=== PATIENT | female | born 1970 | race African-American/Black ===

== ENCOUNTER 2019-04-18 18:14 | Inpatient (IN) | payer OTHER, SELFPAY ==
[2019-04-18 18:34] LABS: #Eosinphils 0.1 thou/uL (0.0-0.7); #Lymphocytes 2.1 thou/uL (1.20-3.40); #Monocytes 0.5 thou/uL (0.11-0.59); #Neutrophils 5.2 thou/uL (1.40-6.50); %Basophils 0.3 % (0.0-1.0); %Eosinophils 0.9 % (0.0-10.0); %Lymphocytes 26.8 % (21.0-51.0); %Monocytes 5.9 % (0.0-10.0); %Neutrophils 66.1 % (42.0-75.0); Hemoglobin 4.7 g/dL (12.0-16.0); Mean Corpuscular HGB CONC 27.3 g/dL (32.0-36.0); Mean Corpuscular Hemoglobin 16.7 pg (27.0-31.0); Mean Corpuscular Volume 61.3 fL (78.0-98.0); Mean Platelet Volume 9.8 fL (7.4-10.4); Platelet Count 502 thou/uL (130-400); RBC Distribution Width 19.3 % (11.5-14.5); Red Blood Cell (RBC) Count 2.82 mill/uL (4.20-5.40); White Blood Cell (WBC) Count 7.8 thou/uL (4.8-10.8)
[2019-04-18 18:58] LABS: ALT (SGPT) 9 U/L (8-55); AST (SGOT) 11 U/L (5-34); Albumin 3.6 g/dL (3.5-5.0); Alkaline Phosphatase 58 U/L (40-110); Anion Gap 10 mmol/L (10-20); BUN (Urea Nitrogen) 13 mg/dL (7.0-18.7); Bilirubin, Total 0.3 mg/dL (0.2-1.2); Calc. Creatinine Clearance 0 mL/min (70-130); Calcium 8.8 mg/dL (7.8-10.44); Carbon Dioxide 26 mmol/L (22-29); Chloride 109 mmol/L (98-107); Estimated GFR-MDRD Greater than 90; Globulin 2.7 g/dL (2.4-3.5); Glucose 103 mg/dL (70-105); Potassium 3.3 mmol/L (3.5-5.1); Protein, Total 6.3 g/dL (6.0-8.3); Sodium 142 mmol/L (136-145)
[2019-04-18] MEDS ORDERED: Pantoprazole 40 MG VIAL ONE (19:15)
[2019-04-18] MEDS ORDERED: Senokot S 8.6-50 MG TAB PO PRN (19:43)
[2019-04-18] MEDS ORDERED: Ondansetron PF 4 MG/2 ML Vial IVP PRN (19:43)
[2019-04-18] MEDS ORDERED: Acetaminophen 325 MG TAB PO PRN (19:43)
[2019-04-18 20:02] LABS: Reticulocyte Count 2.8 % (0.5-1.5)
[2019-04-18 20:21] LABS: Magnesium 1.8 mg/dL (1.6-2.6)
[2019-04-18 21:30] VITALS: BMI 30.7
[2019-04-19] MEDS ORDERED: NIFEdipine XL 30 MG TAB PO SCH (01:30)
--- NOTE | 2019-04-19 03:47 | PDOC.HHP ---
Hospitalist HPI - History of Present Illness Blood in stool; Anemia; Leg swelling History of Present Illness: 48 yo AAF with HTN presents to ER due to abnormal blood work and was sent by PCP. Patient states that she has been experiencing blood in her stool over the past month. This was initially 1-2/wk. However, over the past week, this has gotten upto 4 times/day. She reports leila blood and blood mixed with stools. No pain with BMs. Denies melena, blood vomitus, blood in urine, bleeding gums or epistaxis. She has also noticed shortness of breath with minimal activity, palpitations and lightheadedness with activity. She has experienced leg swelling over the past week and presented to her PCP office. She underwent blood work and was found to have profound anemia. So, she was sent to the ER. She denies N/V/abdominal pain. No fever, chills. No cough, wheezing, CP. No burning or pain with urination. No headache or vision changes. No rash or bruising. She has remote history of hematochezia over 15 yrs ago and had colonoscopy x 2 then and was found to have polyps. She hasn't had any repeat colonoscopies due to lack of insurance. ED Course: Placed on protonix and admitted to hospital. PRBCs ordered for transfusion. Hospitalist ROS - Review of Systems All other systems reviewed; all pertinent +/- noted in HPI/Subj - Medication Medications: Active Medications Generic Name Dose Route Start Last Admin Trade Name Freq PRN Reason Stop Dose Admin Acetaminophen 650 mg 04/18/19 19:43 04/19/19 01:27 Tylenol PO 650 mg Q4H PRN Administration Headache/Fever/Mild Pain (1-3) Pantoprazole Sodium 80 mg/ 100 mls @ 10 mls/hr 04/18/19 19:30 04/18/19 21:38 Miscellaneous Medication 1 IVPB 04/19/19 05:29 100 mls each/ Sodium Chloride INF DAT Administration Hospitalist History - Past Medical History Source: patient Cardiac: reports: HTN Pulmonary: reports: asthma - Past Surgical History Past Surgical History: reports: Tonsillectomy, Other (Colonoscopy) - Family History Family History: reports: diabetes mellitus (both grandmothers) - Social History Smoking Status: Current every day smoker (1 PPD) Tobacco Type: cigarettes Alcohol: reports: Occassional Drugs: reports: marijuana Living Situation: With Family Activity level: independent ambulation - Exam General Appearance: NAD, awake alert Eye: PERRL, anicteric sclera Eye - other findings: Conjunctival pallor present ENT: normocephalic atraumatic, no oropharyngeal lesions, dry oral mucosa Neck: supple, symmetric, no thyromegaly, no lymphadenopathy Heart: RRR, no murmur, no gallops, no rubs, normal peripheral pulses Respiratory: CTAB, no wheezes, no rales, no ronchi, normal chest expansion, no tachypnea, normal percussion Respiratory - other findings: Not using accessory muscles Gastrointestinal: soft, non-tender, non-distended, normal bowel sounds, no palpable masses, no hepatomegaly, no splenomegaly Extremities: no cyanosis, no clubbing, 1+ LE edema (bilaterally) Skin: normal turgor, no lesions, no rashes Neurological: cranial nerve grossly intact, normal sensation to touch, no weakness Musculoskeletal: normal tone, normal strength, no muscle wasting Psychiatric: normal affect, normal behavior, A&O x 3 Hospitalist Results - Labs Result Diagrams: 04/18/19 18:23 04/18/19 18:23 Lab results: WBC 7.8 thou/uL (4.8-10.8) 04/18/19 18:23 Hgb 4.7 g/dL (12.0-16.0) L* 04/18/19 18:23 Hct 17.3 % (36.0-47.0) L 04/18/19 18:23 MCV 61.3 fL (78.0-98.0) L 04/18/19 18:23 Plt Count 502 thou/uL (130-400) H 04/18/19 18:23 Neutrophils % 66.1 % (42.0-75.0) 04/18/19 18:23 Sodium 142 mmol/L (136-145) 04/18/19 18:23 Potassium 3.3 mmol/L (3.5-5.1) L 04/18/19 18:23 Chloride 109 mmol/L (98-107) H 04/18/19 18:23 Carbon Dioxide 26 mmol/L (22-29) 04/18/19 18:23 BUN 13 mg/dL (7.0-18.7) 04/18/19 18:23 Creatinine 0.74 mg/dL (0.6-1.1) 04/18/19 18:23 Glucose 103 mg/dL (70-105) 04/18/19 18:23 Calcium 8.8 mg/dL (7.8-10.44) 04/18/19 18:23 Total Bilirubin 0.3 mg/dL (0.2-1.2) 04/18/19 18:23 AST 11 U/L (5-34) 04/18/19 18:23 ALT 9 U/L (8-55) 04/18/19 18:23 Alkaline Phosphatase 58 U/L (40-110) 04/18/19 18:23 Serum Total Protein 6.3 g/dL (6.0-8.3) 04/18/19 18:23 Albumin 3.6 g/dL (3.5-5.0) 04/18/19 18:23 - EKG Interpretation EKG: Personally reviewed - Sinus rhythm; No ST-T changes suggestive of ischemia Hospitalist H&P A/P - Problem (1) Anemia Code(s): D64.9 - ANEMIA, UNSPECIFIED Status: Acute Qualifiers: Anemia type: other cause Other causes of anemia: acute posthemorrhagic Qualified Code(s): D62 - Acute posthemorrhagic anemia Assessment and Plan: Symptomatic Admit to inpatient status. Expected to stay at least 2 midnights. High risk due to need for PRBCs and possible need for colonoscopy At risk of hemorrhagic shock Got 2 units PRBCs Will follow AM CBC and transfuse further if Hb<7 Profound iron deficiency. Start IV iron for now Eventual PO iron supplementation Likely due to GI bleed. GI consulted. PPI IV BID (2) Hematochezia Code(s): K92.1 - MELENA Status: Acute Assessment and Plan: GI consulted Suspect lower GI source May need colonoscopy NPO for now (3) HTN (hypertension) Code(s): I10 - ESSENTIAL (PRIMARY) HYPERTENSION Status: Chronic Qualifiers: Hypertension type: essential hypertension Qualified Code(s): I10 - Essential (primary) hypertension Assessment and Plan: Uncontrolled Nifedipine started Will monitor BP and adjust meds (4) Asthma Code(s): J45.909 - UNSPECIFIED ASTHMA, UNCOMPLICATED Status: Chronic Qualifiers: Asthma severity: mild Asthma persistence: intermittent Asthma complication type: uncomplicated Qualified Code(s): J45.20 - Mild intermittent asthma, uncomplicated Assessment and Plan: Duonebs PRN (5) Tobacco abuse Code(s): Z72.0 - TOBACCO USE Status: Chronic Assessment and Plan: Counselled regarding cessation. Patient is willing to quit. NRT offered. Patient agreeable. Hammad PRN - Plan Plan: CODE STATUS - FULL CODE Mother is the health care proxy
[2019-04-19] MEDS ORDERED: Sodium Chloride 0.9% (PF) 10 ML VIAL FS PRN (03:48)
[2019-04-19] MEDS: 1/2 NS w/KCL 20 mEq 1,000 ML IV SCH ×2 (04:12→17:34)
[2019-04-19] MEDS: Nicotine 14 MG PATCH TD SCH (04:12)
[2019-04-19 06:28] LABS: #Eosinphils 0.2 thou/uL (0.0-0.7); #Lymphocytes 1.8 thou/uL (1.20-3.40); #Monocytes 0.5 thou/uL (0.11-0.59); #Neutrophils 5.8 thou/uL (1.40-6.50); %Basophils 0.3 % (0.0-1.0); %Eosinophils 2.2 % (0.0-10.0); %Monocytes 5.7 % (0.0-10.0); %Neutrophils 69.8 % (42.0-75.0); Hemoglobin 6.9 g/dL (12.0-16.0); Mean Corpuscular HGB CONC 29.1 g/dL (32.0-36.0); Mean Corpuscular Hemoglobin 19.4 pg (27.0-31.0); Mean Corpuscular Volume 66.7 fL (78.0-98.0); Mean Platelet Volume 10.6 fL (7.4-10.4); Platelet Count 498 thou/uL (130-400); RBC Distribution Width 23.7 % (11.5-14.5); Red Blood Cell (RBC) Count 3.54 mill/uL (4.20-5.40); White Blood Cell (WBC) Count 8.4 thou/uL (4.8-10.8)
[2019-04-19 06:55] LABS: Phosphorus 3.2 mg/dL (2.3-4.7)
[2019-04-19 07:00] LABS: ALT (SGPT) 9 U/L (8-55); AST (SGOT) 11 U/L (5-34); Albumin 3.6 g/dL (3.5-5.0); Alkaline Phosphatase 53 U/L (40-110); Anion Gap 11 mmol/L (10-20); BUN (Urea Nitrogen) 6 mg/dL (7.0-18.7); Bilirubin, Total 0.8 mg/dL (0.2-1.2); Calc. Creatinine Clearance 139 mL/min (70-130); Calcium 8.9 mg/dL (7.8-10.44); Carbon Dioxide 22 mmol/L (22-29); Chloride 106 mmol/L (98-107); Estimated GFR-MDRD Greater than 90; Glucose 87 mg/dL (70-105); Potassium 3.4 mmol/L (3.5-5.1); Protein, Total 6.6 g/dL (6.0-8.3); Sodium 136 mmol/L (136-145)
[2019-04-19] MEDS: Iron, Sodium Ferric Gluconate 125 MG in Sodium Chloride 0.9% 100 ML IVPB SCH ×2 (08:26→21:14)
[2019-04-19] MEDS: Pantoprazole 40 MG VIAL IVP SCH ×2 (08:26→21:14)
[2019-04-19] MEDS: NIFEdipine XL 30 MG TAB PO SCH (08:27)
[2019-04-19] MEDS ORDERED: IRON SUCROSE COMPLEX 100 MG/5 ML SLOW IVP SCH (09:00)
[2019-04-19] MEDS: Acetaminophen 325 MG TAB PO PRN ×2 (09:59→17:40)
--- NOTE | 2019-04-19 14:01 | PDOC.HOSPP ---
- Subjective Encounter Date: 04/19/19 Encounter Time: 10:00 Subjective: hgb still less - transfusing another unit, NPO, GI has seen-- CLD and golyte this PM for cscope in am. repeat hgb this PM and in am. - Objective Vital Signs & Weight: Vital Signs (12 hours) Temp Pulse Pulse Resp BP BP BP 04/19/19 12:43 98.4 F 64 18 170/91 H 04/19/19 11:53 98.5 F 66 18 149/77 H 04/19/19 10:32 98.8 F 60 18 137/79 04/19/19 10:22 98.8 F 72 18 160/80 H 04/19/19 08:27 66 131/76 04/19/19 07:36 98.5 F 66 18 131/76 04/19/19 04:16 98.8 F 64 18 04/19/19 02:22 64 156/73 H BP Pulse Ox 04/19/19 12:43 04/19/19 11:53 04/19/19 10:32 04/19/19 10:22 04/19/19 08:27 04/19/19 07:36 100 04/19/19 04:16 149/75 H 94 L 04/19/19 02:22 98 Weight Admit Weight 202 lb 1.6 oz Weight 202 lb 1.6 oz I&O: 04/18/19 04/19/19 04/20/19 06:59 06:59 07:59 Intake Total 350 350 Balance 350 350 Result Diagrams: 04/19/19 06:10 04/19/19 06:10 Hospitalist ROS - Medication Medications: Active Medications Generic Name Dose Route Start Last Admin Trade Name Freq PRN Reason Stop Dose Admin Acetaminophen 650 mg 04/19/19 03:44 04/19/19 09:59 Tylenol PO 650 mg Q6H PRN Administration Mild Pain (1-3) Potassium Chloride/Sodium Chloride 1,000 mls @ 75 mls/hr 04/19/19 03:45 04/18 04:12 1/2 Ns W/Kcl 20 Meq IV 1,000 mls .[id number] DAT Administration Ferric Sodium Gluconate 110 mls @ 110 mls/hr 04/19/19 09:00 04/19/19 08:26 Complex 125 mg/ Sodium IVPB 04/22/19 09:01 110 mls Chloride BID DAT Administration Nicotine 14 mg 04/19/19 04:00 04/19/19 04:12 Nicoderm Patch TD 14 mg Q24HR DAT Administration Nifedipine 30 mg 04/19/19 09:00 04/19/19 08:27 Procardia Xl PO 30 mg DAILY DAT Administration Pantoprazole Sodium 40 mg 04/19/19 09:00 04/19/19 08:26 Protonix IVP 40 mg Q12HR DAT Administration - Exam General Appearance: NAD, awake alert Eye: PERRL ENT: normocephalic atraumatic Neck: supple Heart: RRR Respiratory: CTAB Gastrointestinal: soft, normal bowel sounds Hosp A/P - Plan Acute blood loos anemia Iron def anemia hematochezia --PPI \- 3 untis of prbsc -cscope in am -IV iron HTN -procadia ASthma -not on home inhalers DVT ppx - no aC
--- NOTE | 2019-04-19 14:46 | CON ---
DATE OF CONSULTATION: REASON FOR CONSULTATION: Rectal bleeding, anemia due to blood loss. HISTORY OF PRESENT ILLNESS: Ms. Cori Denise is a very pleasant 48-year-old female, admitted to the hospital for anemia and history of rectal bleeding. The patient is known to me from before. Apparently, she has seen me in 1999 and also in 2005. She has had a colonoscopy and polypectomy. She has not seen me since 2005. The patient has a history of constipation and has some dark stool. The patient had been having some bleeding recently. The bleeding was bright red. The bleeding was painless. No history of melena. No history of perianal discomfort or tenesmus. Apparently, she saw her cold patcher at [place], and was found to have anemia. She was advised to come to the ER because of anemia and rectal bleeding. She had no upper GI symptoms. She denies any dysphagia, odynophagia, abdominal pain, nausea, or vomiting. No relevant history. SOCIAL HISTORY: The patient is a chronic smoker. She smokes a packet of cigarettes per day. Does not use any drugs. Drinks alcohol socially. MEDICAL ILLNESSES: 1. Anemia due to blood loss. 2. Hematochezia. 3. Hypertension. 4. Asthma. 5. Chronic smoker. SURGERIES: 1. Tonsillectomy. 2. Colonoscopy x2. FAMILY HISTORY: Her grandmothers have diabetes mellitus. No history of cancer. No history of stroke. No history of heart disease or lung disease. REVIEW OF SYSTEMS: Ten-point system reviewed. CONSTITUTIONAL: History of tiredness, fatigability, weakness with occasional dizziness. No history of weight loss. HEAD: No chronic headache. No syncope. EYES: No impaired vision. No diplopia. EARS: No hearing loss. NOSE: No nosebleed. THROAT: No sore throat or dysphagia. BREASTS: No breast masses. LUNGS: No chronic coughing, hemoptysis, or dyspnea. CARDIOVASCULAR SYSTEM: No chest pain. No palpitation. No dyspnea, orthopnea, or PND. GI: History of constipation, history of hematochezia. : No dysuria, hematuria. MUSCULOSKELETAL: Nonrelevant. NEUROENDOCRINE: Nonrelevant. PHYSICAL EXAMINATION: GENERAL: She is a pleasant female, appears very comfortable. VITAL SIGNS: Afebrile, pulse is 64 and blood pressure is 170/90. HEENT: Conjunctivae are clear. NECK: Supple. No adenitis or thyromegaly noted. CARDIOVASCULAR SYSTEM: Normal heart sounds heard. No murmurs. LUNGS: Clear to auscultation. GI: Abdomen is soft. Abdomen is nondistended. Abdomen is nontender. No organomegaly. No masses. EXTREMITIES: Trace edema. LABORATORY DATA: Lab data shows anemia, which is microcytic. Admitting CBC: WBC 7800, hemoglobin 4.7 and after the transfusion came to 6.9, hematocrit 20.3, MCV 61.3, platelet count is 502,000, polymorphs 66, lymphocytes 26, monocytes 5, and retic count 2.8. Chem-7 and lytes are normal. BUN is 6, creatinine 0.71, glucose 87, and calcium is 8.9. Iron is low at 11 and TIBC 444. Bilirubin 0.8, AST 11, ALT 9, alkaline phosphatase is 53, and albumin 3.6. CLINICAL IMPRESSION: 1. This is a 48-year-old female with hematochezia, which is painless. The patient has had colonoscopy and polypectomy more than 20 years ago. She had a followup colonoscopy in 2005 and had no followup colonoscopy afterwards. She has no family history of colon cancer. She also has history of chronic constipation. 2. Hypertension. 3. History of colon polyp. 4. Asthma. PLAN: 1. Clear liquid diet today. 2. We will plan for colonoscopy tomorrow. Job ID: [id number]
[2019-04-19 15:13] LABS: Bacteria/HPF None Seen HPF (None Seen); Bilirubin Negative (Negative); Blood, Urine Negative (Negative); Clarity Clear (Clear); Glucose, Urine (Dipstick) Normal (Negative); Leukocyte Negative Leu/uL (Negative); Nitrite Negative (Negative); Protein, Urine (Dipstick) Negative (Neg-Trace); RBC/HPF None Seen HPF (0-3); Squamous Epithelial 0-3 HPF (0-3); Urobilinogen Normal mg/dL (Less than 2); WBC/HPF 0-3 HPF (0-3)
[2019-04-19 16:10] LABS: Hemoglobin 8.6 g/dL (12.0-16.0)
[2019-04-19] MEDS ORDERED: GoLYTELY 4,000 ml Bottle PO SCH (17:00)
[2019-04-19] MEDS ORDERED: Nitroglycerin 0.4 MG TAB (25 Tab Bottle) PO PRN (21:51)
[2019-04-19] MEDS ORDERED: Acetaminophen 325 MG TAB PO PRN (21:52)
[2019-04-19 22:33] LABS: Troponin I 0.093 ng/mL (< 0.028)
[2019-04-20 01:40] LABS: Troponin I 0.072 ng/mL (< 0.028)
[2019-04-20 05:59] LABS: #Eosinphils 0.2 thou/uL (0.0-0.7); #Lymphocytes 2.1 thou/uL (1.20-3.40); #Monocytes 0.6 thou/uL (0.11-0.59); #Neutrophils 5.2 thou/uL (1.40-6.50); %Eosinophils 2.9 % (0.0-10.0); %Lymphocytes 25.8 % (21.0-51.0); %Monocytes 7.5 % (0.0-10.0); %Neutrophils 63.9 % (42.0-75.0); Hemoglobin 8.9 g/dL (12.0-16.0); Mean Corpuscular HGB CONC 29.9 g/dL (32.0-36.0); Mean Corpuscular Hemoglobin 20.4 pg (27.0-31.0); Mean Corpuscular Volume 68.3 fL (78.0-98.0); Mean Platelet Volume 10.9 fL (7.4-10.4); Platelet Count 517 thou/uL (130-400); RBC Distribution Width 24.5 % (11.5-14.5); Red Blood Cell (RBC) Count 4.34 mill/uL (4.20-5.40); White Blood Cell (WBC) Count 8.1 thou/uL (4.8-10.8)
[2019-04-20] MEDS: Nicotine 14 MG PATCH TD SCH (06:08)
[2019-04-20 06:18] LABS: Anion Gap 12 mmol/L (10-20); BUN (Urea Nitrogen) Less than 4 mg/dL (7.0-18.7); Calc. Creatinine Clearance 141 mL/min (70-130); Calcium 9.2 mg/dL (7.8-10.44); Carbon Dioxide 24 mmol/L (22-29); Chloride 105 mmol/L (98-107); Estimated GFR-MDRD Greater than 90; Glucose 90 mg/dL (70-105); Potassium 3.5 mmol/L (3.5-5.1); Sodium 137 mmol/L (136-145)
[2019-04-20 06:22] LABS: Troponin I 0.072 ng/mL (< 0.028)
[2019-04-20] MEDS: Acetaminophen 325 MG TAB PO PRN (06:28)
--- NOTE | 2019-04-20 06:55 | PDOC.EVN ---
Event Note - Event Note Event Note: PT had brief CP last night. EKG/troponin ordered. No new episode of CP
[2019-04-20 09:29] VITALS: BP 159/88; TEMP 98.4
[2019-04-20] MEDS: Iron, Sodium Ferric Gluconate 125 MG in Sodium Chloride 0.9% 100 ML IVPB SCH (09:29)
[2019-04-20] MEDS: NIFEdipine XL 30 MG TAB PO SCH (09:30)
[2019-04-20] MEDS: 1/2 NS w/KCL 20 mEq 1,000 ML IV SCH (09:30)
[2019-04-20] MEDS: Pantoprazole 40 MG VIAL IVP SCH (09:30)
--- NOTE | 2019-04-20 09:30 | OP ---
DATE OF PROCEDURE: 04/20/2019 OPERATIVE PROCEDURE: Colonoscopy. PREOPERATIVE DIAGNOSES: A 48-year-old female with hematochezia and past history of colon polyp. The patient undergoing colonoscopy. POSTOPERATIVE DIAGNOSIS: Normal colonoscopy except for large hemorrhoids. DESCRIPTION OF PROCEDURE: The patient was placed on her left lateral position and was given sedation by Anesthesia Department. A rectal exam was done. The scope was advanced into the rectum. The patient noted to have external hemorrhoids. A Pentax video colonoscope was introduced into the rectum and advanced all the way to cecum. The prep was excellent. The mucosa appears normal throughout the colon with normal vascular pattern. The appendiceal orifice, ileocecal wall, and cecum well seen. No pathology seen. Withdrawal of scope in the cecum, ascending colon, hepatic flexure, no lesion seen. In the transverse colon, splenic flexure, descending colon, sigmoid colon, no lesion seen. Retroflexion of scope in the rectum showed large hemorrhoids. RECOMMENDATION: 1. High-fiber diet. 2. Metamucil. 3. Iron supplement. 4. From a GI standpoint, she can go home on iron supplement. Job ID: [id number]
[2019-04-20] MEDS ORDERED: PROPOFOL 200 MG/20 ML VIAL ONE (10:47)
--- NOTE | 2019-04-20 14:33 | DIS ---
DATE OF ADMISSION: 04/18/2019 DATE OF DISCHARGE: 04/20/2019 FINAL DIAGNOSES: 1. Acute blood loss anemia. 2. Hypertension. 3. History of asthma. REFUELER: Dr. Masters, Gastrointestinal Service. PROCEDURE: Colonoscopy. HOSPITAL COURSE: The patient is a 48-year-old female with history of hypertension, who presented to the emergency room due to abnormal blood work that was sent by PCP. Apparently, the patient had blood in her stool. Over the past month, she had on multiple occasions bleeding during having bowel movements. It was leila blood and blood mixed with stools. She denied any melena, bloody vomitus, blood in urine, bleeding gums, or epistaxis. Also, she noticed some shortness of breath with minimal activity, palpitations, and lightheadedness with activity. She has experienced leg swelling over the past week prior to this hospitalization and she went to her PCP and underwent blood work and she was found to have profound anemia, so she was sent to the emergency room for further evaluation. She denied any nausea, vomiting, abdominal pain. No fever. No chills. No cough. No wheezing. No chest pain. No burning or pain with urination. No headache. No vision changes. No rash or bruising. Apparently, she had hematochezia over 15 years ago and had colonoscopy x2 then and she had some polyps. She did not have any repeat colonoscopy since then due to lack of insurance. While in the emergency room, her hemoglobin was 4.7 and hematocrit 17.3, platelet count was 502, and white cell count was 7.8. Her sodium 142, potassium 3.3, chloride 109, CO2 of 26, BUN 13, creatinine 0.73, glucose 103. The patient was placed on Protonix in the emergency room and got admitted to the hospital. She was transfused in total 3 units of packed red blood cells. She was seen by Dr. Masters, city tax auditor, who did colonoscopy, which was basically negative except for large internal hemorrhoids. He recommended high-fiber diet and Metamucil and iron supplementation. Her last hemoglobin level which was done today was 8.9. She is doing quite well. She does not have much complaints to offer. Her three troponins I were indeterminate, but she did not have any EKG changes or chest pain which would trigger further evaluation of her cardiac status, so she is discharged home in good condition. We put her on Procardia for her hypertension. She is going to stay on Procardia 30 mg once a day along with ferrous sulfate 325 mg once a day, Nicoderm 14 mg patch daily, chlorthalidone 25 mg once a day and Tylenol p.r.n. and Motrin p.r.n. as needed. She is discharged in good condition with recommendation to follow up with primary care physician in [place] in 1 week. Job ID: [id number]
== END 2019-04-20 14:35 | disposition home or self-care (01) | DRG 812 ==
LOC: ERS 18:14 → T4-B 19:35
PROVIDERS: ADMIT Family Medicine; ATTEND Family Medicine
PROC: 30233N1 Transfusion of Nonautologous Red Blood Cells into Peripheral Vein, Percutaneous Approach (ICD-10-PCS; principal; 2019-04-18)
PROC: 0DJD8ZZ Inspection of Lower Intestinal Tract, Via Natural or Artificial Opening Endoscopic (ICD-10-PCS; 2019-04-20)
DX: D62 Acute posthemorrhagic anemia (principal); I10 Essential (primary) hypertension; J45.20 Mild intermittent asthma, uncomplicated; K63.5 Polyp of colon; K64.4 Residual hemorrhoidal skin tags; F17.210 Nicotine dependence, cigarettes, uncomplicated; Z88.0 Allergy status to penicillin
CPT/HCPCS: 36415; 36430; 80048; 80053; 81001; 82274; 82607; 82728; 82746; 83010; 83540; 83550; 83615; 83735; 84100; 84466; 84484; 85025; 85046; 86850; 86900; 86901; 93005; 93010; 96365; 96376; C9113; J2704; J2916; J3480; J3490; P9016